=== PATIENT | female | born 1950 | race Caucasian/White ===

== ENCOUNTER → 2020-05-07 12:05 | Outpatient (CLI) | payer MEDICARE, OTHER, SELFPAY ==
[2020-05-08 08:10] LABS: SARS CoV19 IgG Negative (Negative)
== END ==
PROVIDERS: Family Provider Internal Medicine; Referring Provider Internal Medicine; Visit Provider Internal Medicine
DX: Z11.59 Encounter for screening for other viral diseases (principal)
CPT/HCPCS: 36415; 86769